=== PATIENT | female | born 1985 | race Hispanic/Latino ===

== ENCOUNTER 2019-02-16 08:10 | Day surgery (SDC) | payer MEDICAID, OTHER ==
--- NOTE | 2019-02-10 13:37 | History and Physical Report ---
History of Present Illness Date of examination: 02/10/19 History of present illness: Patient has been reassessed/reevaluated. H&P has been reviewed. No interval changes. This a 33 YOWF patient desires removal and re-insertion of her Mirena. Patient has displacement of her IUD the strings are not visible Patient's work up has included failed attempt of in office hysteroscopic removal due to patient's discomfort during the procedure. Patient now to have hysteroscopic removal under anesthesia Vital Signs: Patient Profile: 33 Years Old Female Height: 59 inches (149.86 cm) Weight: 190 pounds (86.36 kg) BMI: 38.37 BSA: 1.81 Current Method of Contraception: Mirena IUD Past History : 3 Term Births: 3 Premature Births: 0 Living Children: 3 Para: 3 Mult. Births: 0 Prev : 3 Prev. attempt? none Aborta: 0 Elect. Ab: 0 Spont. Ab: 0 Ectopics: 0 # 1 Delivery date: 2002 Weeks Gestation: 40 labor: no Delivery type: Infant Sex: Male weight: 10-1 Comments: GDM # 2 Delivery date: 2006 Weeks Gestation: 39 labor: no Delivery type: Delivery location: [facility] Sex: Male weight: 9-3 Comments: repeat c/s, no complication # 3 Delivery date: 09/30/2009 Weeks Gestation: 39 Delivery type: Anesthesia type: epidural Delivery location: [facility] Infant Sex: male weight: 8.19 SPINNER CONTINUOUS History Uterine Surgery (not C/S): negative Operations: c/s x 3 Anesthesia Complications: negative Abnormal PAP: positive, LEEP Uterine Anomaly: negative ELLIOT Exposure: negative Infertility: negative Infection History HIV Risk Eval: no Personal hx. of genital herpes: no Partner hx. of genital herpes: no Hx of STD: none Current Allergies (reviewed today): No known allergies Past Medical History: Hypothyroidism GERD Past Surgical History: c/s x 3 Family History Summary: Nance's: Mother, maternal uncle, aunt and MGF No Family History of Breast Cancer No Family History of Colon Cancer No Family History of Ovarvian Cancer Social History: Patient is Smoking History: Patient has never smoked. Risk Factors: Smoked Tobacco Use: Never smoker Smokeless Tobacco Use: Never Passive smoke exposure: no Drug use: no HIV high-risk behavior: no Alcohol use: no Exercise: no Seatbelt use: 100 % Review of Systems General Denies fever, chills, sweats, anorexia, fatigue, weakness, malaise, weight loss and sleep disorder. Denies vaginal discharge, incontinence, dysuria, hematuria, urinary frequency, amenorrhea, menorrhagia, abnormal vaginal bleeding, pelvic pain, genital sores, decreased libido, painful periods, painful sex, urinary urgency, hot flashes, vaginal dryness, vaginal itching and vaginal odor. CV Denies chest pains, palpitations, syncope, dyspnea on exertion, orthopnea, PND and peripheral edema. Resp Denies cough, dyspnea at rest, excessive sputum, hemoptysis, wheezing and pleurisy. GI Denies nausea, vomiting, diarrhea, constipation, change in bowel habits, abdominal pain, melena, hematochezia, jaundice, gas/bloating, indigestion/heartburn, dysphagia and odynophagia. Breast Denies left breast lump, right breast lump, nipple discharge, bloody discharge from nipple, breast pain, abnormal mammogram and breast enlargement. Psych Denies depression, anxiety, irritability and mood swings. Past History Past Medical History: other (SEE HPI) Past Surgical History: , Other (SEE HPI) Social history: , lives with family (SEE HPI), full code Family history: other (SEE HPI) Medications and Allergies Allergies Allergy/AdvReac Type Severity Reaction Status Date / Time lidocaine Allergy Intermediate Unknown Verified 01/06/15 13:25 Home Medications Medication Instructions Recorded Confirmed Last Taken Type Levothyroxine Sodium 125 mcg PO QAM 01/06/15 02/12/19 01/06/15 History [Levothyroxine] 137 mcg Cholestyramine (with Sugar) 378 gm PO DAILY 02/12/19 02/12/19 Unknown History [Cholestyramine Powder] raNITIdine HCl [Zantac] 150 mg PO DAILY 02/12/19 02/12/19 Unknown History Review of Systems Constitutional: other (SEE HPI) Exam - Physical Exam Narrative exam: HEENT: normocephalic, no lesions or deformities Skin no ulcers, xanthomas Chest: respiratory effort normal, clear to auscultation CV: regular, normal S1-S2, no murmur, no rub, no gallop Abdomen: obese normal bowel sounds, soft, nontender, no HSM Well healed pfannenstiel scar Neuro: no gross anomalities Extremities: normal alignment, no joint enlargement, crepitus, masses or tenderness; normal tone and strength SPINNER CONTINUOUS Exams Vulva/Vagina: normal appearance, no discharge, lesions. No evidence of cystocele or rectocele. Cervix: normal appearance, no lesions, no discharge IUD string not seen Uterus: normal position, midline, mobile Adnexae: no masses or tenderness Rectovaginal: exam defered Assessment and Plan - Patient Problems (1) Displacement of intrauterine contraceptive device Current Visit: No Status: Acute Qualifiers: Encounter type: subsequent encounter Qualified Code(s): T83.32XD - Displacement of intrauterine contraceptive device, subsequent encounter Plan to address problem: Indications for and description of the hysteroscopy given. .Discussed risk of surgery including infection, bleeding and risk of perforating her uterus. Questions answered. Patient understands and desires to proceed (2) Hypothyroidism Current Visit: No Status: Chronic Qualifiers: Hypothyroidism type: unspecified Qualified Code(s): E03.9 - Hypothyroidism, unspecified (3) Body mass index 38.0-38.9, adult Current Visit: No Status: Chronic
[2019-02-16] MEDS ORDERED: ONDANSETRON 4 MG/2 ML INJ IV PRN (08:40)
[2019-02-16] MEDS ORDERED: fentaNYL 100 MCG/2 ML INJ IV PRN (08:40)
--- NOTE | 2019-02-16 08:41 | Anesthesia Day of Surgery ---
Anesthesia Day of Surgery - Day of Surgery Patient Examined: Yes Patient H&P Reviewed: Yes Patient is NPO: Yes
--- NOTE | 2019-02-16 08:44 | Anesthesia Consultation ---
Anesthesia Consult and Med Hx Date of service: 02/16/19 - Airway Anesthetic Teeth Evaluation: Good ROM Head & Neck: Adequate Mental/Hyoid Distance: Adequate Mallampati Class: Class II Intubation Access Assessment: Good - Pre-Operative Health Status ASA Pre-Surgery Classification: ASA2 Proposed Anesthetic Plan: General - Pulmonary Hx Smoking: No - Central Nervous System Hx Psychiatric Problems: No - Gastrointestinal Hx Gastroesophageal Reflux Disease: Yes - Endocrine Hx Hypothyroidism: Yes - Other Systems Hx Cancer: No - Additional Comments Anesthesia Medical History Comments: PONV
[2019-02-16] MEDS ORDERED: METOCLOPRAMIDE 10 MG TAB PO NR (09:00)
[2019-02-16] MEDS ORDERED: MIDAZOLAM 2 MG/2 ML INJ IV NR (09:00)
[2019-02-16] MEDS ORDERED: FAMOTIDINE 20 MG TAB PO NR (09:00)
[2019-02-16] MEDS ORDERED: LACTATED RINGERS 1,000 ML ONE (09:05)
[2019-02-16] MEDS ORDERED: HYDROmorphone 1 MG/1 ML INJ ONE (09:49)
[2019-02-16] MEDS ORDERED: PROPOFOL 200 MG/20 ML VIAL IV ONE (09:49)
[2019-02-16 09:51] LABS: Hematocrit 35.4 % (30.3-42.9); Hemoglobin 12.1 gm/dl (10.1-14.3)
[2019-02-16] MEDS ORDERED: LACTATED RINGERS 1,000 ML IV SCH (10:00)
[2019-02-16] MEDS ORDERED: SILVER NITRATE APPLICATOR 1 EA TP ONE ×2 (10:40→10:43)
[2019-02-16] MEDS ORDERED: LIDOCAINE MPF (2%) 20 MG/1 ML VIAL 5 ML ONE (10:41)
[2019-02-16] MEDS ORDERED: ONDANSETRON 4 MG/2 ML INJ ONE (10:41)
[2019-02-16] MEDS ORDERED: KETOROLAC 30 MG/1 ML INJ ONE (10:41)
[2019-02-16] MEDS ORDERED: SODIUM CHLORIDE 0.9% IRRIG SOLN 3000 ML IR ONE (10:48)
--- NOTE | 2019-02-16 11:14 | Operative Report ---
Operative Report Operative Report: Date of procedure: 02/16/2019 Pre-operative diagnosis: Displacement of intrauterine device Post-operative diagnosis: Same Procedure name(s): Hysteroscopic removal of intrauterine device Surgeon: Jadon Herrmann MD Commodity Buyer: [] Anesthesia: General EBL: Minimal Complications: None Findings: [] Specimen(s): Mirena IUD Procedure: Patient was brought to operating room. Where general anesthesia was induced on difficulty. She was placed in the dorsal lithotomy position. Prepped and draped in usual sterile manner. Urinary bladder was emptied with a red rubber catheter. Speculum was placed in the vagina. Tenaculum was placed at 12:00. The cervix was dilated progressively to operative hysteroscope could be placed without any difficulty. The hysteroscope was placed through the cervical os without any complications with the findings noted above. IUD was seen posterior portion of the uterus. The IUD strings were grasped with endoscopic graspers and pulled through the cervical os without difficulty. Silver nitrate was placed at the tenaculum spots for hemostasis. The patient t olerated the procedure well and was awakened in the operating room. Accompanied to the recovery room in good condition
--- NOTE | 2019-02-16 11:15 | Short Stay Summary ---
Short Stay Documentation Date of service: 02/16/19 - History H&P: dictated Past Medical History: other (SEE HPI) Past Surgical History: , Other (SEE HPI) Social history: , lives with family (SEE HPI), full code - Allergies and Medications Current Medications: Home Medications Medication Instructions Recorded Confirmed Last Taken Type Levothyroxine Sodium 125 mcg PO QAM 01/06/15 02/16/19 02/15/19 09:00 History [Levothyroxine] 137 mcg Cholestyramine (with Sugar) 378 gm PO DAILY 02/12/19 02/16/19 02/15/19 09:00 History [Cholestyramine Powder] raNITIdine HCl [Zantac] 150 mg PO DAILY 02/12/19 02/16/19 02/15/19 09:00 History Acetaminophen/Codeine [Tylenol #3] 1 tab PO Q4HR PRN #10 tablet 02/16/19 Unknown Rx DOXYCYCLINE Hyclate [Vibramycin 100 mg PO Q12HR #14 capsule 02/16/19 Unknown Rx CAP] Ibuprofen [Motrin 800 MG tab] 800 mg PO Q6H PRN #30 tablet 02/16/19 Unknown Rx Active Medications Famotidine (Pepcid) 20 mg PO PREOP NR Stop: 02/16/19 16:00 Last Admin: 02/16/19 09:28 Dose: 20 mg Documented by: Fentanyl (Sublimaze) 50 mcg IV Q5MIN PRN PRN Reason: Pain , Severe (7-10) Stop: 02/16/19 20:00 Lactated Ringer's (Lactated Ringers) 1,000 mls @ 75 mls/hr IV DIRECT ADRIA Last Admin: 02/16/19 09:27 Dose: 75 mls/hr Documented by: Metoclopramide HCl (Reglan) 10 mg PO PREOP NR Stop: 02/16/19 16:00 Last Admin: 02/16/19 09:28 Dose: 10 mg Documented by: Midazolam HCl (Versed) 2 mg IV PREOP NR Stop: 02/16/19 23:59 Last Admin: 02/16/19 09:29 Dose: 2 mg Documented by: Ondansetron HCl (Zofran) 4 mg IV ONCE PRN PRN Reason: Nausea And Vomiting - Brief post op/procedure progress note Date of procedure: 02/16/19 (see operative note) - Hospital course Hospital course: Patient was admitted underwent the above him procedure without any complications. Patient will be discharged with follow-up in office in 1-2 weeks for postop check. - Disposition Condition at discharge: Good Disposition: DC-01 TO HOME OR SELFCARE - Discharge Diagnoses (1) Displacement of intrauterine contraceptive device Status: Resolved Qualifiers: Encounter type: subsequent encounter Qualified Code(s): T83.32XD - Displacement of intrauterine contraceptive device, subsequent encounter (2) Hypothyroidism Status: Chronic Qualifiers: Hypothyroidism type: unspecified Qualified Code(s): E03.9 - Hypothyroidism, unspecified (3) Body mass index 38.0-38.9, adult Status: Chronic Short Stay Discharge Plan Activity: advance as tolerated Diet: regular Follow up with: CHILO FLORES MD [Primary Care Provider] - 7 Days Prescriptions: Ibuprofen [Motrin 800 MG tab] 800 mg PO Q6H PRN #30 tablet PRN Reason: Pain Acetaminophen/Codeine [Tylenol #3] 1 tab PO Q4HR PRN #10 tablet PRN Reason: Pain DOXYCYCLINE Hyclate [Vibramycin CAP] 100 mg PO Q12HR #14 capsule
[2019-02-16 11:48] VITALS: BP 124/64
--- NOTE | 2019-02-16 20:33 | Post Anesthesia Evaluation ---
- Post Anesthesia Evaluation Patient Participated: Yes Airway Patent: Yes Stable Respiratory Function: Yes Nausea/Vomiting: No Temp > 96.8F: Yes Pain Manageable: Yes Adequeate Hydration: Yes Anesthesia Complications: No Block Receding Appropriately: Not Applicable Patient on Ventilator: No
== END 2019-02-16 12:15 | disposition home or self-care (01) ==
LOC: OR 08:10
PROVIDERS: ATTEND Obstetrics & Gynecology
DX: T83.32XD Displacement of intrauterine contraceptive device, subsequent encounter (principal); E03.9 Hypothyroidism, unspecified; K21.9 Gastro-esophageal reflux disease without esophagitis; Z79.899 Other long term (current) drug therapy; Z90.49 Acquired absence of other specified parts of digestive tract; Z98.890 Other specified postprocedural states
CPT/HCPCS: 36415; 58562; 81025; 85014; 85018; 88302; A4217; J1170; J1885; J2250; J2405; J2704; J7120